=== PATIENT | female | born 1985 ===

== ENCOUNTER 2018-02-26 04:43 | Inpatient (IN) | payer BC ==
[2018-02-26 05:14] VITALS: BMI 31.5
[2018-02-26] MEDS ORDERED: Acetaminophen 500 MG TAB PO PRN (05:54)
[2018-02-26] MEDS ORDERED: Promethazine HCl 25 MG/ML VIAL IM PRN (05:54)
[2018-02-26] MEDS ORDERED: Butorphanol Tartrate 1 MG/ML VIAL SLOW IVP PRN (05:54)
[2018-02-26] MEDS ORDERED: Ondansetron HCl/PF 4 MG/2 ML Vial IVP PRN ×2 (05:54→10:36)
[2018-02-26] MEDS ORDERED: Lactated Ringer's 1,000 ML IV PRN (05:54)
[2018-02-26 06:00] LABS: Hemoglobin 15.8 g/dL (12.0-16.0); Mean Corpuscular HGB CONC 33.3 g/dL (32.0-36.0); Mean Corpuscular Hemoglobin 29.7 pg (27.0-31.0); Mean Corpuscular Volume 89.2 fL (78.0-98.0); Mean Platelet Volume 7.3 fL (7.4-10.4); Platelet Count 236 thou/uL (130-400); RBC Distribution Width 12.3 % (11.5-14.5); Red Blood Cell (RBC) Count 5.31 mill/uL (4.20-5.40); White Blood Cell (WBC) Count 13.6 thou/uL (4.8-10.8)
[2018-02-26 06:45] LABS: Hep B Surf Ag Non-Reactive S/CO (NonReactive)
[2018-02-26 06:46] LABS: Syphilis Antibody Nonreactive (Nonreactive); Syphilis Antibody Index 0.02 S/CO (<1.00 Non-Reactive)
[2018-02-26] MEDS ORDERED: NS / Oxytocin 40 units/1000ml 1,000 ML ONE (07:40)
[2018-02-26] MEDS ORDERED: Lidocaine 1% (PF) 30 ML VIAL ONE (09:46)
[2018-02-26] MEDS ORDERED: Milk Of Magnesia 30 ML UDCUP PO PRN (10:36)
[2018-02-26] MEDS ORDERED: Zolpidem Tartrate 5 MG TAB PO PRN (10:36)
[2018-02-26] MEDS ORDERED: Bisacodyl 10 MG SUPP PR PRN (10:36)
[2018-02-26] MEDS ORDERED: Lanolin Ointment 7 GM TUBE TOP PRN (10:36)
[2018-02-26] MEDS ORDERED: Preparation H Ointment 28 GM TUBE PR PRN (10:36)
[2018-02-26] MEDS ORDERED: Adacel (T-DAP) 0.5 ML VIAL IM ONE (10:36)
[2018-02-26] MEDS ORDERED: Benzocaine/Menthol 20-0.5% 60 ML CAN TOP PRN (10:36)
[2018-02-26] MEDS ORDERED: diphenhydrAMINE 25 MG CAP PO PRN (10:36)
[2018-02-26] MEDS ORDERED: Acetaminophen/Codeine 30-300mg Tablet PO PRN (10:36)
[2018-02-26] MEDS ORDERED: NS / Oxytocin 40 units/1000ml 1,000 ML IV SCH (10:45)
[2018-02-26] MEDS: Ibuprofen 800 MG TAB PO SCH ×2 (12:05→20:48)
[2018-02-26] MEDS: Ferrous Sulfate 325 MG TAB PO SCH (17:48)
[2018-02-26] MEDS: Docusate Calcium (SURFAK) 240 MG CAP PO SCH (20:48)
[2018-02-27] MEDS: Acetaminophen/Codeine 30-300mg Tablet PO PRN (00:42)
[2018-02-27 05:03] LABS: Hemoglobin 11.6 g/dL (12.0-16.0); Mean Corpuscular HGB CONC 33.5 g/dL (32.0-36.0); Mean Corpuscular Hemoglobin 30.7 pg (27.0-31.0); Mean Corpuscular Volume 91.5 fL (78.0-98.0); Platelet Count 180 thou/uL (130-400); RBC Distribution Width 12.3 % (11.5-14.5); Red Blood Cell (RBC) Count 3.78 mill/uL (4.20-5.40); White Blood Cell (WBC) Count 12.2 thou/uL (4.8-10.8)
[2018-02-27] MEDS: Prenatal Vitamin 1 TAB PO SCH (09:23)
[2018-02-27] MEDS: Docusate Calcium (SURFAK) 240 MG CAP PO SCH ×2 (09:23→22:58)
[2018-02-27] MEDS: Ibuprofen 800 MG TAB PO SCH ×3 (09:30→22:57)
[2018-02-27] MEDS: Ferrous Sulfate 325 MG TAB PO SCH ×2 (09:31→18:00)
[2018-02-28] MEDS: Ibuprofen 800 MG TAB PO SCH ×2 (07:55→14:54)
[2018-02-28 08:22] VITALS: BP 115/71; TEMP 97.9
[2018-02-28] MEDS: Docusate Calcium (SURFAK) 240 MG CAP PO SCH (09:39)
[2018-02-28] MEDS: Prenatal Vitamin 1 TAB PO SCH (09:39)
[2018-02-28] MEDS: Ferrous Sulfate 325 MG TAB PO SCH ×2 (09:40→18:06)
[2018-02-28] MEDS: Acetaminophen/Codeine 30-300mg Tablet PO PRN (13:28)
== END 2018-02-28 18:10 | disposition home or self-care (01) | DRG 775 ==
LOC: L&D/OP 04:43 → L&D-LIB 05:26 → 3SW 13:22
PROVIDERS: ADMIT Obstetrics & Gynecology; ATTEND Obstetrics & Gynecology
PROC: 10E0XZZ Delivery of Products of Conception, External Approach (ICD-10-PCS; principal; 2018-02-26)
PROC: 10907ZC Drainage of Amniotic Fluid, Therapeutic from Products of Conception, Via Natural or Artificial Opening (ICD-10-PCS; 2018-02-26)
DX: O69.81X0 Labor and delivery complicated by cord around neck, without compression, not applicable or unspecified (principal); O70.1 Second degree perineal laceration during delivery; Z3A.40 40 weeks gestation of pregnancy; Z37.0 Single live birth
CPT/HCPCS: 36415; 85027; 85461; 86780; 86850; 86870; 86900; 86901; 87340; 90384; 96372; 99285; J2001

== ENCOUNTER 2019-09-03 14:03 | Inpatient (IN) | payer BC ==
[2019-09-03 14:35] VITALS: BMI 31.8
[2019-09-03] MEDS ORDERED: Ibuprofen 800 MG TAB PO PRN (15:14)
[2019-09-03] MEDS ORDERED: NS / Oxytocin 40 units/1000ml 1,000 ML IV PRN (15:14)
[2019-09-03] MEDS ORDERED: hydrALAZINE 20 MG/ML VIAL SLOW IVP PRN (15:14)
[2019-09-03] MEDS ORDERED: Ondansetron PF 4 MG/2 ML Vial IVP PRN (15:14)
[2019-09-03] MEDS ORDERED: Lidocaine 1% (PF) 30 ML VIAL SC PRN (15:14)
[2019-09-03] MEDS ORDERED: HYDROcodone/Acetaminophen 5/325 mg Tablet PO PRN ×2 (15:14)
[2019-09-03] MEDS ORDERED: Promethazine HCl 25 MG/ML VIAL IM PRN (15:14)
[2019-09-03] MEDS ORDERED: Butorphanol Tartrate 1 MG/ML VIAL SLOW IVP PRN (15:14)
[2019-09-03] MEDS ORDERED: Meperidine HCl/PF 25 MG/ML VIAL IM/IV PRN (15:14)
[2019-09-03] MEDS ORDERED: Lactated Ringer's 1,000 ML IV SCH ×2 (15:15)
[2019-09-03 15:33] LABS: Hemoglobin 14.1 g/dL (12.0-16.0); Mean Corpuscular HGB CONC 34.2 g/dL (32.0-36.0); Mean Corpuscular Volume 87.6 fL (78.0-98.0); Platelet Count 227 thou/uL (130-400); RBC Distribution Width 13.9 % (11.5-14.5); Red Blood Cell (RBC) Count 4.71 mill/uL (4.20-5.40); White Blood Cell (WBC) Count 11.2 thou/uL (4.8-10.8)
[2019-09-03 16:11] LABS: HBSAg Index 0.23 S/CO (0-0.99); Hep B Surf Ag Non-Reactive S/CO (NonReactive); Syphilis Antibody Nonreactive (Nonreactive); Syphilis Antibody Index 0.04 S/CO (<1.00 Non-Reactive)
[2019-09-04] MEDS ORDERED: hydrALAZINE 20 MG/ML VIAL SLOW IVP PRN (00:28)
[2019-09-04] MEDS ORDERED: Ondansetron PF 4 MG/2 ML Vial IVP PRN (00:28)
[2019-09-04] MEDS ORDERED: Preparation H Ointment 28 GM TUBE PR PRN (00:28)
[2019-09-04] MEDS ORDERED: Milk Of Magnesia 30 ML UDCUP PO PRN (00:28)
[2019-09-04] MEDS ORDERED: HYDROcodone/Acetaminophen 5/325 mg Tablet PO PRN ×2 (00:28)
[2019-09-04] MEDS ORDERED: Bisacodyl 10 MG SUPP PR PRN (00:28)
[2019-09-04] MEDS ORDERED: Benzocaine-Menthol 82.5 ML CAN TOP PRN (00:28)
[2019-09-04] MEDS ORDERED: Lanolin Ointment 7 GM TUBE TOP PRN (00:28)
[2019-09-04] MEDS ORDERED: NS / Oxytocin 40 units/1000ml 1,000 ML IV SCH (00:30)
[2019-09-04] MEDS ORDERED: Sodium Chloride 0.9% 10 ML ONE (05:17)
[2019-09-04] MEDS: Ibuprofen 800 MG TAB PO SCH ×3 (07:12→21:06)
[2019-09-04] MEDS: Docusate Calcium (SURFAK) 240 MG CAP PO SCH ×2 (08:47→21:06)
[2019-09-04] MEDS: Ferrous Sulfate 325 MG TAB PO SCH ×2 (08:47→23:40)
[2019-09-04] MEDS: Prenatal Vitamin 1 TAB PO SCH (08:47)
[2019-09-04] MEDS ORDERED: Adacel (T-DAP) 0.5 ML SYRINGE IM ONE (09:00)
[2019-09-05 01:39] VITALS: BP 106/63
--- NOTE | 2019-09-05 02:16 | OP ---
DATE OF PROCEDURE: 09/03/2019 PREOPERATIVE DIAGNOSES: 1. A 34-year-old G2, P1, at 40 weeks in active labor. 2. Group B Streptococcus negative. 3. Rh negative. POSTOPERATIVE DIAGNOSES: 1. A 34-year-old G2, P1, at 40 weeks in active labor. 2. Group B Streptococcus negative. 3. Rh negative. 4. Live born male with Apgars of 8 and 9 at one and five minutes respectively. 5. Third-degree laceration with repair under local anesthetic. PROCEDURE PERFORMED: Spontaneous vaginal delivery. ANESTHESIA: Local. ESTIMATED BLOOD LOSS: 180 mL. CLINICAL HISTORY: This patient is a 34-year-old G2, P1, who presented to the office on her due date for her routine OB visit. She is noted at that time to be 4 cm, but very stretchy to 6, but was not in active labor. The patient had an uneventful course other than short-interval as well as a short extent of polyhydramnios that resolved spontaneously. She desired a natural delivery and had a delivery prior of a baby girl in the same manner and wished to repeat that. The risks, benefits, and possible complications of delivery post her due date was discussed. The patient's membranes were stripped and she was sent away. Later that evening, she noted regular contractions that were painful and uncomfortable. She came to triage and was noted to be 5 to 6 cm. She was admitted and placed in the lower intervention room per her request. The patient continued to labor without significant change in her cervical exam and amniotomy was performed for clear fluid. She continued to do comfort measures in the lower intervention room and then quickly progressed to complete cervical dilation and +2 station. DETAILS OF PROCEDURE: With good maternal effort, the patient was able to push the vertex to . The head was delivered and restituted to the maternal left. The anterior shoulder followed by the posterior shoulder followed by the remainder of the 's body was delivered. The cried spontaneously and vigorously. The cord was doubly clamped and cut by the father and placed on the maternal abdomen for continued stimulation. The cord blood was obtained and then with gentle uterine massage, the placenta was delivered spontaneously intact with a 3-vessel cord. Exploration of the vagina, introitus, and the cervix noted a midline sulcal laceration that was down to the rectus sphincter muscles, was considered a third-degree. This was repaired in the usual fashion by reapproximating the sphincter, the partial tear and then reapproximating the space with crown suturing and then bringing together the subcutaneous and overlying skin and bearing the knot behind the hymen. The patient of course had local anesthetic for comfort during this procedure. She tolerated the procedure well. The uterus afterwards was continuing to trickle and clot was manually expressed from the cervical os. Thereafter, the patient was able to recover in satisfactory condition on Labor and Delivery without any other issues, and then transferred over to the unit. Again, she had a live-born male with Apgars of 8 and 9 at one and five minutes respectively. There were no other issues surrounding this delivery. All needle, sponge, lap, and instrument counts were correct x2 at the end of the procedure. Job ID: [id number]
[2019-09-05] MEDS: Ibuprofen 800 MG TAB PO SCH ×2 (05:46→13:17)
[2019-09-05 08:38] VITALS: TEMP 98.4
[2019-09-05] MEDS: Ferrous Sulfate 325 MG TAB PO SCH (09:02)
[2019-09-05] MEDS: Prenatal Vitamin 1 TAB PO SCH (10:19)
[2019-09-05] MEDS: Docusate Calcium (SURFAK) 240 MG CAP PO SCH (10:19)
== END 2019-09-05 13:51 | disposition home or self-care (01) | DRG 768 ==
LOC: L&D/OP 14:03 → EEVIPCON 14:03 → L&D-LIB 15:15 → UNDOADMIN 09-04 00:14 → 3SW 09-04 03:12 → L&D-LIB 09-04 03:12
PROVIDERS: ADMIT Obstetrics & Gynecology; ATTEND Obstetrics & Gynecology
PROC: 10907ZC Drainage of Amniotic Fluid, Therapeutic from Products of Conception, Via Natural or Artificial Opening (ICD-10-PCS; principal; 2019-09-04)
PROC: 0DQR0ZZ Repair Anal Sphincter, Open Approach (ICD-10-PCS; 2019-09-04)
PROC: 10E0XZZ Delivery of Products of Conception, External Approach (ICD-10-PCS; 2019-09-04)
PROC: 3E0334Z Introduction of Serum, Toxoid and Vaccine into Peripheral Vein, Percutaneous Approach (ICD-10-PCS; 2019-09-04)
DX: O26.893 Other specified pregnancy related conditions, third trimester (principal); Z37.0 Single live birth; O40.3XX0 Polyhydramnios, third trimester, not applicable or unspecified; O70.20 Third degree perineal laceration during delivery, unspecified; Z3A.40 40 weeks gestation of pregnancy; Z67.41 Type O blood, Rh negative
CPT/HCPCS: 36415; 85027; 85461; 86780; 86850; 86900; 86901; 87340; 90384; 96372; J2001